=== PATIENT | male | born 1965 | race Caucasian/White ===

== ENCOUNTER 2017-08-21 09:56 | Inpatient (IN) | payer MEDICAID, OTHER ==
[~2017-08-21] VITALS: Ht 170.2 cm; Wt 140.0 kg
[~2017-08-21 09:56] MED LIST: IBUP-1985 PO; PRED20TA PO
[2017-08-21] MEDS ORDERED: acetaminophen 325mg tablet PO ONE (11:05)
[2017-08-21] MEDS ORDERED: normal saline 1000ML IV soln IVB ONE ×2 (11:05→12:15)
[2017-08-21] MEDS ORDERED: LIDOcaine/epinephrine TOPICAL 5 ML BTL TOP ONE (11:05)
[2017-08-21] MEDS ORDERED: CefTRIAXone 2gm/NS 100ml IVPB 100 ML IV ONE (11:10)
[2017-08-21 11:27] LABS: CLARITY,URINE CLEAR (Clear); COLOR,URINE GREEN (Yellow); GLUCOSE, URINE NEGATIVE (Neg); KETONES,URINE NEGATIVE (Neg); LEUKOCYTE ESTERASE ,URINE TRACE (Neg); NITRITES, URINE NEGATIVE (Neg); OCCULT BLOOD,URINE NEGATIVE (Neg); PROTEIN,URINE NEGATIVE (Neg); UROBILINOGEN,URINE 0.2 E.U/dL (0.2-1.0)
[2017-08-21] MEDS ORDERED: LIDOcaine 1% (10mg/ml) 5ml syringe SQ ONE (11:30)
[2017-08-21 11:32] LABS: UA COLLECTION TYPE CLN CATCH MIDSTREAM
[2017-08-21 11:33] LABS: RBC,URINE NONE SEEN /HPF (0-2); WBC,URINE 0-4 /HPF (0-4)
[2017-08-21 11:34] LABS: BACTERIA,URINE NONE SEEN /HPF (Neg)
[2017-08-21 11:35] LABS: MUCUS STRANDS NONE SEEN /LPF (Neg); SQUAMOUS EPITHELIAL CELL,UR FEW /LPF (FEW)
[2017-08-21 11:53] LABS: BASOPHILS % (AUTO) 0.1 % (0-1); EOSINOPHILS # (AUTO) 0.1 X10'3 (0-0.9); EOSINOPHILS % (AUTO) 0.3 % (0-6); HEMATOCRIT 42.1 % (42.0-52.0); HEMOGLOBIN 14.3 g/dl (14.0-17.9); LYMPHOCYTES % (AUTO) 5.5 % (21-51); MEAN CORPUSCULAR HEMOGLOBIN 30.4 PG (27.0-31.0); MEAN CORPUSCULAR VOLUME 89.5 FL (78-98); MEAN PLATELET VOLUME 7.7 FL (7.4-10.4); MONOCYTES # (AUTO) 0.7 X10'3 (0-0.9); NEUTROPHILS # (AUTO) 16.2 X10'3 (1.8-7.7); NEUTROPHILS % (AUTO) 90.1 % (42-75); PLATELET COUNT 308 X10'3 (140-440); RED BLOOD COUNT 4.71 X10'6 (4.70-6.10)
[2017-08-21 12:09] LABS: ALANINE AMINOTRANSFERASE 24 U/L (12-78); ALBUMIN 2.8 G/DL (3.4-5.0); ALBUMIN/GLOBULIN RATIO 0.7 (1.1-1.5); ALKALINE PHOSPHATASE 135 IU/L (46-116); ANION GAP 12 (8-16); ASPARTATE AMINO TRANSFERASE 11 U/L (10-37); BILIRUBIN,TOTAL 0.2 MG/DL (0.1-1.0); BLOOD UREA NITROGEN 12 MG/DL (7-18); BUN/CREATININE RATIO 16.2 (5.4-32.0); CHLORIDE 101 MMOL/L (99-107); CREATININE 0.74 MG/DL (0.60-1.10); GLUCOSE 155 MG/DL (70-104); POTASSIUM 3.5 MMOL/L (3.5-5.1); SODIUM 140 MMOL/L (135-145); TOTAL PROTEIN 6.9 G/DL (6.4-8.2); eGFR > 90 ML/MIN
[2017-08-21] MEDS ORDERED: vancomycin/NS 1 GM ADD-VANTAGE 250 ML IV ONE (12:35)
[2017-08-21] MEDS ORDERED: bisacodyl 10mg suppository rectal RC PRN (13:15)
[2017-08-21] MEDS ORDERED: magnesium hydroxide 30ml (MOM) UD suspension PO PRN (13:15)
[2017-08-21] MEDS ORDERED: HYDROcodone/acetaminophen 5mg/325mg tablet PO PRN (13:15)
[2017-08-21] MEDS ORDERED: potassium Cl 40MEQ/NS 500ml 500 ML IV PRN ×2 (13:15)
[2017-08-21] MEDS ORDERED: magnesium 4gm in 100ml NS 100 ML IV PRN (13:15)
[2017-08-21] MEDS ORDERED: mag hydrox/Alum hydrox/simeth 30ml oral suspension PO PRN (13:15)
[2017-08-21] MEDS ORDERED: morphine 2 MG/ML inj. syringe IV PRN ×2 (13:15)
[2017-08-21] MEDS ORDERED: magnesium Cl slow-release 64mg tablet PO PRN (13:15)
[2017-08-21] MEDS ORDERED: potassium Cl 20 mEq SR tablet PO PRN ×2 (13:15)
[2017-08-21] MEDS ORDERED: acetaminophen 325mg tablet PO PRN (13:15)
[2017-08-21] MEDS ORDERED: magnesium 2GM in 50ml NS 50 ML IV PRN (13:15)
[2017-08-21] MEDS ORDERED: LORazepam 2 mg/ml vial IV PRN (13:20)
[2017-08-21] MEDS ORDERED: HYDROcodone/acetaminophen 10/325mg tab PO ONE (13:20)
[2017-08-21] MEDS: ibuprofen tablet 400 MG TABLET PO SCH ×2 (13:37→17:44)
[2017-08-21] MEDS: ondansetron/PF 4mg/2ml inj IV PRN (14:00)
[2017-08-21] MEDS: LORazepam 1 MG tablet PO PRN (14:00)
[2017-08-21] MEDS: potassium Cl 20mEq in NS 1,000 ML IV SCH ×2 (14:35→23:12)
[2017-08-21 18:00] VITALS: BP 124/75
[2017-08-21] MEDS: HYDROcodone/acetaminophen 10/325mg tab PO PRN (19:19)
[2017-08-21] MEDS: folic acid inj. 2 MG, thiamine inj. 100 MG, MVI, adult No.4 with vit. K 10 ML in dextro... IV SCH ×4 (19:19)
[2017-08-21] MEDS: docusate sod 100mg capsule PO SCH (19:24)
[2017-08-21] MEDS ORDERED: vancomycin/NS 1 GM ADD-VANTAGE 250 ML IV SCH (20:00)
[2017-08-21] MEDS: vancomycin/NS 1 GM ADD-VANTAGE 250 ML IV SCH (20:35)
[2017-08-21 23:00] VITALS: BP 137/80
[2017-08-22] MEDS: vancomycin/NS 1 GM ADD-VANTAGE 250 ML IV SCH ×2 (04:31→13:01)
[2017-08-22 05:54] LABS: BASOPHILS % (AUTO) 0.4 % (0-1); EOSINOPHILS # (AUTO) 0.7 X10'3 (0-0.9); EOSINOPHILS % (AUTO) 6.9 % (0-6); HEMATOCRIT 33.6 % (42.0-52.0); HEMOGLOBIN 11.7 g/dl (14.0-17.9); LYMPHOCYTES # (AUTO) 1.3 X10'3 (1.1-4.8); LYMPHOCYTES % (AUTO) 12.4 % (21-51); MEAN CORPUSCULAR HEMOGLOBIN 30.6 PG (27.0-31.0); MEAN CORPUSCULAR HGB CONC 34.8 % (33.0-36.5); MEAN CORPUSCULAR VOLUME 88.1 FL (78-98); MEAN PLATELET VOLUME 7.6 FL (7.4-10.4); MONOCYTES % (AUTO) 9.8 % (2-12); NEUTROPHILS # (AUTO) 7.4 X10'3 (1.8-7.7); NEUTROPHILS % (AUTO) 70.5 % (42-75); PLATELET COUNT 295 X10'3 (140-440); RED BLOOD COUNT 3.81 X10'6 (4.70-6.10); RED CELL DISTRIBUTION WIDTH 13.9 % (11.5-14.5); WHITE BLOOD COUNT 10.5 X10'3 (4.5-11.0)
[2017-08-22 06:23] LABS: ANION GAP 5 (8-16); BLOOD UREA NITROGEN 12 MG/DL (7-18); BUN/CREATININE RATIO 18.5 (5.4-32.0); CALCIUM 8.3 MG/DL (8.5-10.1); CHLORIDE 107 MMOL/L (99-107); CREATININE 0.65 MG/DL (0.60-1.10); GLUCOSE 104 MG/DL (70-104); MAGNESIUM 1.6 MG/DL (1.5-2.4); PHOSPHORUS 3.4 MG/DL (2.3-4.5); SODIUM 142 MMOL/L (135-145); TOTAL CARBON DIOXIDE 30.2 MMOL/L (24-32); eGFR > 90 ML/MIN
[2017-08-22] MEDS: K and/or MAG REPLACEMENT MC SCH (06:42)
[2017-08-22 07:25] VITALS: BP 114/71
[2017-08-22] MEDS: docusate sod 100mg capsule PO SCH ×2 (08:33→19:57)
[2017-08-22] MEDS: ibuprofen tablet 400 MG TABLET PO SCH ×3 (08:33→17:26)
[2017-08-22] MEDS: enoxaparin 40mg/0.4ml syringe SUBCUT SCH (08:34)
[2017-08-22] MEDS: cefTRIAXone 1g/NS 100ml IVPB 100 ML IV SCH (08:39)
[2017-08-22] MEDS: folic acid inj. 2 MG, thiamine inj. 100 MG, MVI, adult No.4 with vit. K 10 ML in dextro... IV SCH ×4 (08:39)
[2017-08-22] MEDS: pantoprazole 40mg Tablet.DR PO SCH (08:39)
[2017-08-22] MEDS: LORazepam 1 MG tablet PO PRN ×3 (08:39→15:50)
[2017-08-22] MEDS: ondansetron/PF 4mg/2ml inj IV PRN (08:55)
[2017-08-22] MEDS: potassium Cl 20mEq in NS 1,000 ML IV SCH ×2 (09:12→19:53)
[2017-08-22 11:59] VITALS: BP 100/61
[2017-08-22] MEDS ORDERED: VANCOMYCIN LEVEL IV ONE (12:30)
[2017-08-22 19:00] VITALS: BP 134/77
[2017-08-22] MEDS: linezolid 600mg/300ml PREMIX 300 ML IV SCH (19:54)
[2017-08-22] MEDS: HYDROcodone/acetaminophen 10/325mg tab PO PRN (19:58)
[2017-08-22] MEDS ORDERED: vancomycin inj 1,250 MG in normal saline 250ml IV soln 250 ML IV SCH (21:00)
[2017-08-23] VITALS: BP 127/77
[2017-08-23 06:09] LABS: ALBUMIN 2.3 G/DL (3.4-5.0); ANION GAP 3 (8-16); BLOOD UREA NITROGEN 9 MG/DL (7-18); BUN/CREATININE RATIO 10.5 (5.4-32.0); CALCIUM 8.5 MG/DL (8.5-10.1); CHLORIDE 103 MMOL/L (99-107); CREATININE 0.86 MG/DL (0.60-1.10); GLUCOSE 102 MG/DL (70-104); MAGNESIUM 1.9 MG/DL (1.5-2.4); POTASSIUM 4.3 MMOL/L (3.5-5.1); SODIUM 141 MMOL/L (135-145); TOTAL CARBON DIOXIDE 34.9 MMOL/L (24-32); eGFR > 90 ML/MIN
[2017-08-23 07:00] VITALS: BP 111/62
[2017-08-23] MEDS: pantoprazole 40mg Tablet.DR PO SCH (07:23)
[2017-08-23] MEDS: docusate sod 100mg capsule PO SCH (07:23)
[2017-08-23] MEDS: cefTRIAXone 1g/NS 100ml IVPB 100 ML IV SCH (07:25)
[2017-08-23] MEDS: enoxaparin 40mg/0.4ml syringe SUBCUT SCH (07:25)
[2017-08-23] MEDS: LORazepam 1 MG tablet PO PRN (07:28)
[2017-08-23] MEDS ORDERED: lactobacillus rhamnosus 10,000 MMU CELLS/CAPSULE PO SCH (07:30)
[2017-08-23] MEDS: ibuprofen tablet 400 MG TABLET PO SCH (07:40)
[2017-08-23] MEDS: K and/or MAG REPLACEMENT MC SCH (07:40)
[2017-08-23] MEDS: potassium Cl 20mEq in NS 1,000 ML IV SCH (08:14)
[2017-08-23] MEDS ORDERED: folic acid 1mg tablet PO SCH (09:00)
[2017-08-23] MEDS ORDERED: multivitamins, therapeutics tablet PO SCH (09:00)
[2017-08-23] MEDS ORDERED: thiamine 100mg tablet PO SCH (09:00)
[2017-08-23] MEDS: linezolid 600mg/300ml PREMIX 300 ML IV SCH (09:54)
[2017-08-23] MEDS ORDERED: CEPH500C5 PO (10:58)
[2017-08-23] MEDS ORDERED: THI100T PO (10:58)
[2017-08-23] MEDS ORDERED: FOLI1TAB16 PO (10:58)
[2017-08-23] MEDS ORDERED: IBUP-1984 PO (10:58)
[2017-08-23] MEDS ORDERED: FAMO-128 PO (10:59)
[2017-08-23] MEDS ORDERED: VANCOMYCIN LEVEL IV ONE (20:30)
== END 2017-08-23 12:15 | disposition home or self-care (01) | DRG 872 ==
LOC: ER 09:56 → ED HOLD 12:48 → SUR 3N 14:18
PROVIDERS: ADMIT Internal Medicine; ATTEND Internal Medicine
PROC: 0H9KXZZ Drainage of Right Lower Leg Skin, External Approach (ICD-10-PCS; principal; 2017-08-21)
DX: A41.9 Sepsis, unspecified organism (principal); L02.415 Cutaneous abscess of right lower limb; L03.115 Cellulitis of right lower limb; L08.9 Local infection of the skin and subcutaneous tissue, unspecified; F10.20 Alcohol dependence, uncomplicated; F15.10 Other stimulant abuse, uncomplicated; Z88.0 Allergy status to penicillin; Z88.6 Allergy status to analgesic agent; Z88.7 Allergy status to serum and vaccine; Z79.899 Other long term (current) drug therapy
CPT/HCPCS: 36415; 80048; 80053; 80202; 81001; 82948; 83605; 83735; 84100; 84145; 85025; 87040; 87070; 87077; 87088; 87186; 96365; 99285; A6212; A6449; J0696; J1650; J2001; J2020; J2405; J3370; J3411; J3480; J3490; J7030; J7060

== ENCOUNTER 2018-01-24 21:17 | Emergency (ER) | payer OTHER ==
[~2018-01-24] VITALS: Ht 170.2 cm; Wt 63.6 kg
[~2018-01-24 21:17] MED LIST changes: +FAMO-128 PO; +FOLI1TAB16 PO; +IBUP-1984 PO; -IBUP-1985 PO; -PRED20TA PO; +THI100T PO
[2018-01-24 22:02] LABS: CLARITY,URINE CLEAR (Clear); COLOR,URINE YELLOW (Yellow); GLUCOSE, URINE NEGATIVE (Neg); KETONES,URINE NEGATIVE (Neg); LEUKOCYTE ESTERASE ,URINE NEGATIVE (Neg); NITRITES, URINE NEGATIVE (Neg); OCCULT BLOOD,URINE TRACE-INTACT (Neg); PH,URINE 5.5 (4.8-8.0); PROTEIN,URINE NEGATIVE (Neg); UROBILINOGEN,URINE 0.2 E.U/dL (0.2-1.0)
[2018-01-24 22:03] LABS: UA COLLECTION TYPE CLN CATCH MIDSTREAM
[2018-01-24 22:06] LABS: BASOPHILS # (AUTO) 0.2 X10'3 (0-0.2); BASOPHILS % (AUTO) 1.5 % (0-1); EOSINOPHILS # (AUTO) 0.7 X10'3 (0-0.9); EOSINOPHILS % (AUTO) 5.9 % (0-6); HEMATOCRIT 38.9 % (42.0-52.0); HEMOGLOBIN 13.4 g/dl (14.0-17.9); LYMPHOCYTES # (AUTO) 1.8 X10'3 (1.1-4.8); LYMPHOCYTES % (AUTO) 15.3 % (21-51); MEAN CORPUSCULAR HEMOGLOBIN 30.9 PG (27.0-31.0); MEAN CORPUSCULAR HGB CONC 34.5 % (33.0-36.5); MEAN CORPUSCULAR VOLUME 89.5 FL (78-98); MEAN PLATELET VOLUME 8.4 FL (7.4-10.4); MONOCYTES # (AUTO) 0.9 X10'3 (0-0.9); MONOCYTES % (AUTO) 8.1 % (2-12); NEUTROPHILS # (AUTO) 8.1 X10'3 (1.8-7.7); NEUTROPHILS % (AUTO) 69.2 % (42-75); PLATELET COUNT 232 X10'3 (140-440); RED BLOOD COUNT 4.35 X10'6 (4.70-6.10); RED CELL DISTRIBUTION WIDTH 14.4 % (11.5-14.5); WHITE BLOOD COUNT 11.7 X10'3 (4.5-11.0)
[2018-01-24 22:12] LABS: ALANINE AMINOTRANSFERASE 22 U/L (12-78); ALBUMIN 2.5 G/DL (3.4-5.0); ALBUMIN/GLOBULIN RATIO 0.6 (1.1-1.5); ALKALINE PHOSPHATASE 156 IU/L (46-116); ANION GAP 8 (8-16); ASPARTATE AMINO TRANSFERASE 15 U/L (10-37); BILIRUBIN,TOTAL 0.3 MG/DL (0.1-1.0); BLOOD UREA NITROGEN 12 MG/DL (7-18); BUN/CREATININE RATIO 15.4 (5.4-32.0); CALCIUM 8.9 MG/DL (8.5-10.1); CHLORIDE 104 MMOL/L (99-107); CREATININE 0.78 MG/DL (0.60-1.10); GLUCOSE 105 MG/DL (70-104); POTASSIUM 3.5 MMOL/L (3.5-5.1); SODIUM 141 MMOL/L (135-145); TOTAL CARBON DIOXIDE 28.8 MMOL/L (24-32); TOTAL PROTEIN 6.7 G/DL (6.4-8.2); eGFR > 90 ML/MIN
[2018-01-24 22:14] LABS: BACTERIA,URINE NONE SEEN /HPF (Neg); SQUAMOUS EPITHELIAL CELL,UR NONE SEEN /LPF (FEW); WBC,URINE NONE SEEN /HPF (0-4)
[2018-01-24 22:15] LABS: AMORPHOUS URATES 1+
[2018-01-25] MEDS ORDERED: CLIN300C85 PO (00:06)
[2018-01-25] MEDS ORDERED: clindamycin 150mg capsule PO ONE (00:10)
[2018-01-25] MEDS ORDERED: ibuprofen tablet 400 MG TABLET PO ONE (00:10)
[2018-01-25] MEDS ORDERED: LIDOcaine 4% (40 mg/ml) topical solution 50ml TP ONE (00:10)
[2018-01-25 00:22] VITALS: BP 110/64
== END 2018-01-25 01:13 | disposition home or self-care (01) ==
LOC: ER 21:18
DX: L03.115 Cellulitis of right lower limb (principal); F12.90 Cannabis use, unspecified, uncomplicated; F15.90 Other stimulant use, unspecified, uncomplicated; F17.200 Nicotine dependence, unspecified, uncomplicated; Z86.14 Personal history of Methicillin resistant Staphylococcus aureus infection; Z79.899 Other long term (current) drug therapy; Z88.0 Allergy status to penicillin; Z88.7 Allergy status to serum and vaccine; Z88.6 Allergy status to analgesic agent
CPT/HCPCS: 36415; 80053; 81001; 83605; 84145; 85025; 87040; 87070; 99284; A6449; 87077; 87186